=== PATIENT | female | born 1950 | race Caucasian/White ===

== ENCOUNTER → 2024-04-27 09:59 | Outpatient (REF) | payer MEDICARE, OTHER, SELFPAY | LOC: HWRAD 09:59 | PROVIDERS: ATTENDING PHYSICIAN Physical Medicine & Rehabilitation; FAMILY PHYSICIAN Family Medicine | DX: M54.2 Cervicalgia (principal) | CPT/HCPCS: 72050 ==

== ENCOUNTER → 2024-12-07 11:10 | Outpatient (REF) | payer MEDICARE, OTHER, SELFPAY | LOC: CLAB 11:10 | PROVIDERS: ATTENDING PHYSICIAN Physician Assistant | DX: J32.9 Chronic sinusitis, unspecified (principal) | CPT/HCPCS: 87070; 87147 ==

== ENCOUNTER 2025-02-04 06:19 | Day surgery (SDC) | payer MEDICARE, OTHER, SELFPAY | END 2025-02-04 15:33 | disposition home or self-care (01) | LOC: GI 06:19 | PROVIDERS: ATTENDING PHYSICIAN Internal Medicine | DX: Z12.11 Encounter for screening for malignant neoplasm of colon (principal); K57.30 Diverticulosis of large intestine without perforation or abscess without bleeding | CPT/HCPCS: G0121 ==

== ENCOUNTER → 2025-04-04 11:51 | Outpatient (REF) | payer MEDICARE, OTHER, SELFPAY | LOC: HWRCS 11:51 | PROVIDERS: ATTENDING PHYSICIAN Internal Medicine Cardiovascular Disease; FAMILY PHYSICIAN Internal Medicine | DX: I35.1 Nonrheumatic aortic (valve) insufficiency (principal) | CPT/HCPCS: 93306 ==

== ENCOUNTER → 2025-06-28 11:40 | Outpatient (REF) | payer MEDICARE, OTHER, SELFPAY | LOC: RAD 11:40 | PROVIDERS: ATTENDING PHYSICIAN Internal Medicine | DX: R20.2 Paresthesia of skin (principal); J18.9 Pneumonia, unspecified organism | CPT/HCPCS: 71046; 72050 ==